=== PATIENT | male | born 1995 | race Caucasian/White ===

== ENCOUNTER 2023-02-18 14:25 | Emergency (ER) | payer MEDICAID ==
[~2023-02-18] VITALS: Ht 182.9 cm; Wt 79.4 kg
[2023-02-18 14:32] VITALS: BP 151/81; TEMP 98.2; O2SAT 99
== END 2023-02-18 15:52 | disposition home or self-care (01) ==
LOC: ER 14:25
DX: S61.311A Laceration without foreign body of left index finger with damage to nail, initial encounter (principal); Z88.0 Allergy status to penicillin; Z88.1 Allergy status to other antibiotic agents; W45.8XXA Other foreign body or object entering through skin, initial encounter; Y93.89 Activity, other specified; Y92.89 Other specified places as the place of occurrence of the external cause; Y99.8 Other external cause status